=== PATIENT | male | born 1955 | race Caucasian/White ===

== ENCOUNTER 2017-08-17 15:48 | Emergency (ER) | payer MEDICAID, OTHER ==
--- NOTE | 2017-08-17 16:28 | Emergency Department Record ---
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 Capillary refill good Onset/Timin -: Minutes(s) Place: Work, Other Context: Accidental Associated Symptoms: None Treatments Prior to Arrival: Bandage - Edward Coma Scale Eye Response: (4) Open spontaneously Motor Response: (6) Obeys commands Verbal Response: (5) Oriented [place] Total: 15 - Related Data Patient Tetanus UTD (within 5 yrs): No Home Medications Medication Instructions Recorded Confirmed Last Taken Amlodipine Besylate/Benazepril 1 each PO DAILY 08/17/17 08/17/17 1 Day Ago [Amlodipine-Benazepril 5-20 mg] ~08/16/17 Aspirin 81 mg PO DAILY 08/17/17 08/17/17 1 Day Ago ~08/16/17 Atorvastatin Calcium 40 mg PO DAILY 08/17/17 08/17/17 1 Day Ago ~08/16/17 Cholecalciferol (Vitamin D3) 2,000 units PO DAILY 08/17/17 08/17/17 1 Day Ago [Vitamin D3] ~08/16/17 Meloxicam 15 mg PO DAILY 08/17/17 08/17/17 1 Day Ago ~08/16/17 Omeprazole 20 mg PO DAILY 08/17/17 08/17/17 1 Day Ago ~08/16/17 Pramipexole Di-HCl [Pramipexole 0.25 mg PO TID 08/17/17 08/17/17 1 Day Ago Dihydrochloride] ~08/16/17 Primidone [Mysoline] 250 mg PO BID 08/17/17 08/17/17 1 Day Ago ~08/16/17 Tramadol HCl [Ultram] 50 mg PO Q8H 08/17/17 08/17/17 1 Day Ago ~08/16/17 Previous Rx's Medication Instructions Recorded Cephalexin [Keflex] 500 mg PO QID #40 cap 08/17/17 Hydrocodone/Acetaminophen [Daphne 1 each PO Q4HR #30 tablet 08/17/17 5-325 Tablet] Allergies Allergy/AdvReac Type Severity Reaction Status Date / Time No Known Drug Allergies Allergy Verified 08/17/17 15:57 Travel Screening - Travel/Exposure Within Last 30 Days Have you traveled within the last 30 days?: No - Travel/Exposure Within Last Year Have you traveled outside the [place] in the last year?: No - Additonal Travel Details Have you been exposed to anyone with a communicable illness?: No - Travel Symptoms Symptom Screening: None Review of Systems Reviewed: No additional complaints except as noted below Constitutional: Reports: As per HPI. Denies: Chills, Fever, Malaise, Night sweats, Weakness, Weight change Eyes: Reports: As per HPI. Denies: Eye discharge, Eye pain, Photophobia, Vision change ENT: Reports: As per HPI. Denies: Congestion, Dental pain, Ear pain, Epistaxis , Hearing loss, Throat pain Respiratory: Reports: As per HPI. Denies: Cough, Dyspnea, Hemoptysis, Stridor, Wheezes Cardiovascular: Reports: As per HPI. Denies: Arrhythmia, Chest pain, Dyspnea on exertion, Edema, Murmurs, Orthopnea, Palpitations, Paroxysmal nocturnal dyspnea, Rheumatic Fever, Syncope Endocrine: Reports: As per HPI. Denies: Fatigue, Heat or cold intolerance, Polydipsia, Polyuria Gastrointestinal: Reports: As per HPI. Denies: Abdominal pain, Constipation, Diarrhea, Hematemesis, Hematochezia, Melena, Nausea, Vomiting Genitourinary: Reports: As per HPI. Denies: Dysuria, Frequency, Hematuria, Incontinence, Retention, Testicular pain, Testicular mass, Urgency Musculoskeletal: Reports: As per HPI. Denies: Arthralgia, Back pain, Gout, Joint swelling, Myalgia, Neck pain Skin: Reports: As per HPI. Denies: Bruising, Change in color, Change in hair/ nails, Lesions, Pruritus, Rash Neurological: Reports: As per HPI. Denies: Abnormal gait, Confusion, Headache, Numbness, Paresthesias, Seizure, Tingling, Tremors, Vertigo, Weakness Psychiatric: Reports: As per HPI. Denies: Anxiety, Auditory hallucinations, Depression, Homicidal thoughts, Suicidal thoughts, Visual hallucinations Hematological/Lymphatic: Reports: As per HPI. Denies: Anemia, Blood Clots, Easy bleeding, Easy bruising, Swollen glands Past Medical History - SOCIAL HISTORY Smoking Status: Current every day smoker Alcohol Use: None Alcohol Use Comment: 18 years clear Drug Use: Occasional Drug Use Detail:: Marijuana - RESPIRATORY Hx Respiratory Disorders: No - CARDIOVASCULAR Hx Hypertension: Yes Comment:: hypercholesterol - NEURO Hx Parkinson's Disease: Yes (central tremor only) - GI Hx Diverticulitis: Yes (diverticulosus) Hx Reflux: Yes - Hx UTI: Yes - MUSCULOSKELETAL Hx Arthritis: Yes - PSYCH Hx Psych Problems: No - HEMATOLOGY/ONCOLOGY Hx Hematology/Oncology Disorders: No Family Medical History Any Significant Family History?: Yes Physical Exam - General General Appearance: Alert, Oriented x3, Cooperative, No acute distress - Head Head exam: Normal inspection - Eye Eye exam: Normal appearance, PERRL Pupils: Normal accommodation - ENT ENT exam: Normal exam, Mucous membranes moist, Normal external ear exam, Normal orophraynx, TM's normal bilaterally Ear exam: Normal external inspection. negative: External canal tenderness Nasal Exam: Normal inspection. negative: Discharge, Sinus tenderness Mouth exam: Normal external inspection, Tongue normal Teeth exam: Normal inspection. negative: Dental caries Throat exam: Normal inspection. negative: Tonsillar erythema, Tonsillar exudate - Neck Neck exam: Normal inspection, Full ROM. negative: Tenderness - Respiratory Respiratory exam: Normal lung sounds bilaterally. negative: Respiratory distress - Cardiovascular Cardiovascular Exam: Regular rate, Normal rhythm, Normal heart sounds - GI/Abdominal GI/Abdominal exam: Soft, Normal bowel sounds. negative: Tenderness - Rectal Rectal exam: Deferred - exam: Deferred - Extremities Extremities exam: Normal capillary refill, Tenderness (right thumb laceration with unstable bone.) - Back Back exam: Reports: Normal inspection, Full ROM. Denies: Muscle spasm, Rash noted, Tenderness - Neurological Neurological exam: Alert, Normal gait, Oriented X3, Reflexes normal - Psychiatric Psychiatric exam: Normal affect, Normal mood - Skin Skin exam: Dry, Intact, Normal color, Warm Course Vital Signs 08/17/17 15:49 Temperature 98.5 F Pulse Rate 67 Respiratory 18 Rate Blood Pressure 196/102 Pulse Ox 96 - Reevaluation(s) Reevaluation #1: digital block with 1% lidocaine and 025% sensorcaine 08/17/17 16:32 Reevaluation #2: washed wound and placed xerofoam and gauze dressing and he he is to call the office saturday to be seen on sat, or . leave dressing on till than. 08/17/17 18:13 Reevaluation #3: discussed case with Dr. Red and he said call the office and he will be seen saturday , or by his partner or him. 08/17/17 18:27 Medical Decision Making - Data Complexity MDM Data: Labs Ordered and/or Reviewed, X-Ray Ordered and/or Reviewed (open fracture into the IP joint) - Lab Data Result diagrams: 08/17/17 17:00 08/17/17 17:00 Disposition Clinical Impression: Open fracture of thumb Qualifiers: Encounter type: initial encounter Phalanx: unspecified phalanx Fracture alignment: displaced Laterality: right Qualified Code(s): S62.501B - Fracture of unspecified phalanx of right thumb, initial encounter for open fracture Disposition: Home, Self-Care Instructions: Laceration (ED), Thumb Fracture (ED) Additional Instructions: follow up with Dr. Esparza on saturday by calling the office and getting a appointment for saturday or and tell the office we talked on the phone. office phone number for Dr Staples is [phone] Prescriptions: Hydrocodone/Acetaminophen [Daphne 5-325 Tablet] 1 each PO Q4HR #30 tablet Cephalexin [Keflex] 500 mg PO QID #40 cap Forms: Patient Portal Access Time of Disposition: 18:36 Quality - Quality Measures Quality Measures: N/A - Blood Pressure Screening Does Patient Have Any of the Following: No Blood Pressure Classification: Hypertensive Reading Systolic Measurement: 196 Diastolic Measurement: 102 Screening for High Blood Pressure: < First Hypertensive BP, F/U Documented > [ [id number]] First Hypertensive Follow-up Interventions: Referral to alternative/primary care provider.
[2017-08-17] MEDS ORDERED: Diph,Pert(Acell),Tet Vac 0.5 ML SYR IM ONE (16:30)
[2017-08-17] MEDS ORDERED: CEFTRIAXONE SODIUM 1 GM in 0.9 % SODIUM CHLORIDE 100ML 100 ML IVPB ONE (16:31)
[2017-08-17 17:13] LABS: BASO % 0.2 % (0-6); EOS % 1.7 % (0-6); GRAN % 75.8 % (47-80); HEMATOCRIT 42.4 % (42.0-52.0); HEMOGLOBIN 15.2 gm/dl (14.0-18.0); LYMPH % 15.2 % (16-45); MEAN CORPUSCULAR HEMOGLOBIN 32.6 pg (27-33); MEAN CORPUSCULAR HGB CONC 35.8 g/dl (32-36); MEAN PLATELET VOLUME 10.2 fl (7.4-10.4); MONO % 7.1 % (0-9); PLATELET COUNT 202 K/uL (130-400); RED BLOOD COUNT 4.66 M/uL (4.40-5.70); WHITE BLOOD COUNT W/O DIFF 11.6 K/uL (4.2-12.2)
[2017-08-17 17:25] LABS: BLOOD UREA NITROGEN 22 mg/dL (8-23); CREATININE 0.9 mg/dL (0.7-1.2); EST GLOMERULAR FILTRATION RATE > 60 mL/min
[2017-08-17 17:28] LABS: GLUCOSE,RANDOM 96 mg/dL (74-109)
--- NOTE | 2017-08-18 23:47 | RADIOLOGY REPORT ---
EXAM: THUMB, RIGHT HISTORY: RIGHT THUMB LACERATION WITH A TABLE SAW TODAY. TECHNIQUE: Three views of the right thumb were obtained. COMPARISON: None. ENCOUNTER: Initial. FINDINGS: There is soft tissue laceration of the thumb at the level of the base of the distal phalanx. There is no visible radiopaque foreign body. There is a mildly displaced intraarticular fracture at the base of the first distal phalanx consistent with an open fracture. Mild diffuse arthritic changes are present. IMPRESSION: INTRAARTICULAR FRACTURE AT THE BASE OF THE FIRST DISTAL PHALANX WITH OVERLYING SOFT TISSUE LACERATION CONSISTENT WITH AN OPEN FRACTURE. JOB NUMBER: [id number] MTDD
== END 2017-08-17 19:12 | disposition home or self-care (01) ==
LOC: ER 15:48
DX: S62.521B Displaced fracture of distal phalanx of right thumb, initial encounter for open fracture (principal); W31.2XXA Contact with powered woodworking and forming machines, initial encounter; Y99.0 Civilian activity done for income or pay; F17.210 Nicotine dependence, cigarettes, uncomplicated
CPT/HCPCS: 64450; 80048; 85025; 85730; 90715; 96372; 99283; 99284